=== PATIENT | female | born 1960 | race Caucasian/White ===

== ENCOUNTER 2016-07-13 13:50 | Emergency (ER) | payer OTHER ==
--- NOTE | 2016-07-13 14:36 | C.PDOC ---
History Of Present Illness 56 year old female presents to the ED with complaint of right shoulder pain. She states yesterday she tripped and fell on uneven pavement. Pain started last night, patient states she took Advil but felt no relief. Patient denies head injury, numbness or weakness. No further complaints at this time. Time Seen by Provider: 07/13/16 14:11 Chief Complaint (Nursing): Upper Extremity Problem/Injury History Per: Patient History/Exam Limitations: no limitations Onset/Duration Of Symptoms: Days Current Symptoms Are (Timing): Still Present Quality: "Pain" Severity: Mild Exacerbating Factor(s): Movement Past Medical History Reviewed: Historical Data, Nursing Documentation, Vital Signs Vital Signs: Last Vital Signs Temp 97.9 F 07/13/16 14:45 Pulse 82 07/13/16 14:45 Resp 18 07/13/16 14:45 BP 158/96 H 07/13/16 15:06 Pulse Ox 98 07/13/16 16:10 Family History: States: Unknown Family Hx - Social History Hx Tobacco Use: No Hx Alcohol Use: No Hx Substance Use: No - Immunization History Hx Tetanus Toxoid Vaccination: No Hx Influenza Vaccination: No Hx Pneumococcal Vaccination: No Review Of Systems Except As Marked, All Systems Reviewed And Found Negative. Constitutional: Negative for: Fever, Chills Gastrointestinal: Negative for: Vomiting Musculoskeletal: Positive for: Shoulder Pain (Right shoulder). Negative for: Neck Pain, Arm Pain Neurological: Negative for: Weakness, Numbness, Headache Physical Exam - Physical Exam Appears: Well, Non-toxic, No Acute Distress Skin: Normal Color, Warm Head: Atraumatic, Normacephalic, No Tenderness Eye(s): bilateral: Normal Inspection Neck: Normal ROM Chest: Symmetrical Extremity: Tenderness (Right shoulder tenderness anteriorly), Capillary Refill ( < 2 seconds), No Deformity, No Swelling, Other (pain with abduction) Pulses: Left Radial: Normal, Right Radial: Normal Neurological/Psych: Oriented x3, Normal Speech, Normal Sensation, Normal Reflexes Gait: Steady ED Course And Treatment O2 Sat by Pulse Oximetry: 98 (Room air) Pulse Ox Interpretation: Normal - Other Rad Right Shoulder xray X-Ray: Interpreted by Me, Viewed By Me Interpretation: Negative for fracture. Medical Decision Making Medical Decision Making: Plan: * R Shoulder XRay * Reassess Prior Visits: Notes and results from previous visits were reviewed. Progress Notes: xray negative for fracture Arm sling applied by RN. On reassessment, patient is resting comfortably, and is in no acute distress. BP was elevated, patient states whenever she is in hospital she has high blood pressure, because she gets nervous. Patient instructed to follow up with clinic/PMD within 1-2 days. Disposition Counseled Patient/Family Regarding: Diagnosis, Need For Followup, Rx Given - Disposition Disposition: HOME/ ROUTINE Disposition Time: 14:34 Condition: STABLE Additional Instructions: Hinojosa radiografa es normal, sin fractura. Por favor aplique hielo a la nilo 15-20 minutos dos o misty veces al da. [facility] Motrin u otro medicamento anti- inflamatorio, con alimentos para no molestar el estmago. Seguir con ortopedia si el dolor persiste hasmukh nas semana. 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 - Scribe Statement The provider has reviewed the documentation as recorded by the Juliocesar Pierce All medical record entries made by the Juliocesar were at my direction and personally dictated by me. I have reviewed the chart and agree that the record accurately reflects my personal performance of the history, physical exam, medical decision making, and the department course for this patient. I have also personally directed, reviewed, and agree with the discharge instructions and disposition.
[2016-07-13 14:47] VITALS: PULSE 82; RESP 18; TEMP 97.9
[2016-07-13 14:57] VITALS: O2SAT 98
[2016-07-13 15:06] VITALS: BP 158/96
--- NOTE | 2016-07-13 15:17 | RAD ---
PROCEDURE: Radiographs of the Right Shoulder HISTORY: pain s.p fall COMPARISON: None available. FINDINGS: BONES: Osseous demineralization limits evaluation for acute fracture lines. No acute displaced fracture. The distal clavicle and underlying ribs appear intact. Tiny calcification adjacent to the humeral head may reflect calcific tendinitis. JOINTS: No acute dislocation. Acromioclavicular arthropathy. Mild narrowing of the glenohumeral joint space. SOFT TISSUES: Soft tissues appear unremarkable. No evidence of radiopaque foreign body. IMPRESSION: Osseous demineralization. Degenerative changes. No acute displaced fracture or dislocation evident. If symptoms persist or if there is continued clinical concern, x-ray follow-up in 7-10 days should be considered. Evidence of calcific tendinitis with punctate calcification adjacent to the right humeral head.
== END 2016-07-13 15:06 | disposition home or self-care (01) ==
LOC: C.ER 13:50
DX: S43.401A Unspecified sprain of right shoulder joint, initial encounter (principal); W01.0XXA Fall on same level from slipping, tripping and stumbling without subsequent striking against object, initial encounter; Y92.480 Sidewalk as the place of occurrence of the external cause

== ENCOUNTER 2017-07-27 11:59 | Emergency (ER) | payer MEDICAID, OTHER ==
[2017-07-27 12:11] VITALS: BP 144/98; PULSE 98; TEMP 98.1; O2SAT 98
--- NOTE | 2017-07-27 13:07 | C.PDOC ---
History Of Present Illness 57 year old female complains of noticing redness to right lower leg 3 days ago, now area is swollen and hurts to touch. denies any injury, fall, itching, numbness, weakness. Time Seen by Provider: 07/27/17 12:28 Chief Complaint (Nursing): Lower Extremity Problem/Injury History Per: Patient History/Exam Limitations: no limitations Onset/Duration Of Symptoms: Days Current Symptoms Are (Timing): Still Present Location Of Injury: Right: Leg Recent travel outside of the [place]: No Past Medical History Reviewed: Historical Data, Nursing Documentation, Vital Signs Vital Signs: Last Vital Signs Temp 98.1 F 07/27/17 12:07 Pulse 98 H 07/27/17 12:07 Resp 18 07/27/17 13:16 BP 144/98 H 07/27/17 12:07 Pulse Ox 98 07/27/17 13:22 - Medical History PMH: HTN (NO MEDS) Family History: States: Unknown Family Hx - Social History Hx Tobacco Use: No Hx Alcohol Use: No Hx Substance Use: No - Immunization History Hx Tetanus Toxoid Vaccination: No Hx Influenza Vaccination: Yes Hx Pneumococcal Vaccination: No Review Of Systems Constitutional: Negative for: Fever, Chills Skin: Positive for: Other (Redness to right lower leg) Neurological: Negative for: Weakness, Numbness Physical Exam - Physical Exam Appears: Non-toxic, No Acute Distress Skin: Warm, Dry Head: Atraumatic, Normacephalic Eye(s): bilateral: Normal Inspection Extremity: Normal ROM (To right leg and ankle), No Calf Tenderness, Capillary Refill (<2 seconds), Other (Right distal lateral tibial area with 1x2cm area of erythema, induration, and swelling extending to the lateral ankle. Foot with bunion and hammer toe second digit.) Pulses: Left Dorsalis Pedis: Normal, Right Dorsalis Pedis: Normal Neurological/Psych: Oriented x3, Normal Speech, Normal Motor, Normal Sensation Gait: Steady ED Course And Treatment O2 Sat by Pulse Oximetry: 98 Medical Decision Making Medical Decision Making: Patient with erythema, swelling, induration to right posterior ankle. Will treat for cellulitis with Bactrim, since patient has PCN allergy. Recommend warm compress and motrin for inflammation and pain. Follow up for wound check with primary doctor, clinic or ER in 2-3 days to make sure it is improving and not spreading. Disposition Counseled Patient/Family Regarding: Diagnosis, Need For Followup, Rx Given - Disposition Referrals: Delmy Gould MD [Staff Provider] - [facility] [Outside] [facility] [Outside] [facility] [Outside] Disposition: HOME/ ROUTINE Disposition Time: 13:08 Condition: GOOD Additional Instructions: Rx sent to [facility] Take antibiotic twice daily for one week Recommend warm compress and motrin for inflammation and pain. Follow up for wound check with primary doctor, clinic or ER in 2-3 days to make sure it is improving and not spreading. If you notice and streaking redness, severe pain or fevers return to ER Prescriptions: Ibuprofen [Motrin] 600 mg PO Q8 #30 tab Sulfamethoxazole/Trimethoprim [Bactrim DS 800 mg-160 mg] 1 tab PO BID #14 tab Instructions: Cellulitis (Skin Infection), Adult (DC) Forms: [employer] (Setswana) Print Language: WOLOF - POA Present On Arrival: None - Clinical Impression Clinical Impression: Cellulitis of leg - PA / TRAFFIC ADMINISTRATOR / Resident Statement MD/DO has reviewed & agrees with the documentation as recorded. - Scribe Statement The provider has reviewed the documentation as recorded by the Scribkelly Johnston All medical record entries made by the Christinibkelly were at my direction and personally dictated by me. I have reviewed the chart and agree that the record accurately reflects my personal performance of the history, physical exam, medical decision making, and the department course for this patient. I have also personally directed, reviewed, and agree with the discharge instructions and disposition.
[2017-07-27 13:17] VITALS: RESP 18
== END 2017-07-27 13:17 | disposition home or self-care (01) ==
LOC: C.ER 11:59
DX: L03.115 Cellulitis of right lower limb (principal)

== ENCOUNTER 2018-07-22 11:59 | Emergency (ER) | payer SELFPAY ==
[2018-07-22 12:04] VITALS: BMI 26.6
[2018-07-22 12:08] VITALS: TEMP 98.2
--- NOTE | 2018-07-22 13:45 | C.PDOC ---
History Of Present Illness 58 y/o female presents to ED complaining of worsening right lower extremity pain for the past 2 weeks. Patient denies trauma or fall. Has history of varicose veins. Time Seen by Provider: 07/22/18 12:23 Chief Complaint (Nursing): Lower Extremity Problem/Injury History Per: Patient History/Exam Limitations: no limitations Onset/Duration Of Symptoms: Days Current Symptoms Are (Timing): Still Present Past Medical History Reviewed: Historical Data, Nursing Documentation, Vital Signs Vital Signs: Last Vital Signs Temp 98.2 F 07/22/18 12:04 Pulse 107 H 07/22/18 12:04 Resp 18 07/22/18 12:04 BP 177/121 H 07/22/18 12:04 Pulse Ox 95 07/22/18 12:04 - Medical History PMH: HTN Denies: Chronic Kidney Disease Family History: States: No Known Family Hx - Social History Hx Tobacco Use: No Hx Alcohol Use: No Hx Substance Use: No - Immunization History Hx Tetanus Toxoid Vaccination: No Hx Influenza Vaccination: Yes Hx Pneumococcal Vaccination: No Review Of Systems Except As Marked, All Systems Reviewed And Found Negative. Cardiovascular: Negative for: Chest Pain Respiratory: Negative for: Shortness of Breath Gastrointestinal: Negative for: Vomiting, Abdominal Pain Musculoskeletal: Positive for: Leg Pain (Right). Negative for: Neck Pain Neurological: Negative for: Weakness, Numbness Physical Exam - Physical Exam Appears: Non-toxic, No Acute Distress Skin: Warm, Dry Head: Atraumatic, Normacephalic Eye(s): bilateral: Normal Inspection Oral Mucosa: Moist Neck: Supple Cardiovascular: Rhythm Regular, No Murmur Respiratory: Normal Breath Sounds, No Rales, No Rhonchi, No Wheezing Gastrointestinal/Abdominal: Soft, No Tenderness Extremity: Tenderness, Other (diffuse 1+ edema on right lower extremity, no erythema) Extremity: Bilateral: Normal ROM Neurological/Psych: Oriented x3, Normal Speech, Normal Motor, Normal Sensation ED Course And Treatment O2 Sat by Pulse Oximetry: 95 (RA) Pulse Ox Interpretation: Normal Medical Decision Making Medical Decision Making: Plan: --Flexeril 10 mg PO --Toradol 60 mg IM --Venous Duplex Scan Right Lower Ext Update: Venous doppler negative Disposition - Disposition Referrals: Leo Green MD [Non-Staff] - Disposition: HOME/ ROUTINE Disposition Time: 17:11 Condition: STABLE Prescriptions: Ibuprofen [Motrin] 600 mg PO TID #15 tab Methocarbamol [Robaxin] 500 mg PO BID 7 Days #18 tab Instructions: Radiculopathy (DC) Forms: [facility] (Kiswahili), Work Excuse - Clinical Impression Clinical Impression: Lumbar radiculopathy - Scribe Statement The provider has reviewed the documentation as recorded by the Christinibkelly Paulino Provider Attestation: All medical record entries made by the Christinibkelly were at my direction and personally dictated by me. I have reviewed the chart and agree that the record accurately reflects my personal performance of the history, physical exam, medical decision making, and the department course for this patient. I have also personally directed, reviewed, and agree with the discharge instructions and disposition.
[2018-07-22 17:16] VITALS: BP 164/94; PULSE 90; RESP 20
[2018-07-23 14:22] VITALS: O2SAT 95
--- NOTE | 2018-07-24 12:01 | VASCLAB ---
Date of service: 07/22/2018 PROCEDURE: Right Lower Extremity Venous Duplex Exam. HISTORY: dvt PRIORS: None. TECHNIQUE: Right common femoral, femoral, popliteal and posterior tibial, peroneal and great saphenous veins were evaluated. Flow was assessed with color Doppler, compressibility, assessment of phasic flow and augmentation response. Report prepared by YANI Tadeo FINDINGS: RIGHT: 1. Common Femoral Vein: 1.1. Compressibility - Fully compressible: Thrombus - None: Flow - Phasic: Augmentation -Normal: Reflux - None. 2. Femoral Vein: 2.1. Compressibility - Fully compressible: Thrombus - None: Flow - Phasic: Augmentation -Normal: Reflux - None. 3. Popliteal Vein: 3.1. Compressibility - Fully compressible: Thrombus - None: Flow - Phasic: Augmentation -Normal: Reflux - None. 4. Posterior Tibial Vein: 4.1. Compressibility - Fully compressible: Thrombus - None: Flow - Phasic: Augmentation -Normal: Reflux - None. 5. Peroneal Vein: 5.1. Compressibility - Fully compressible: Thrombus - None: Flow - Phasic: Augmentation -Normal: Reflux - None. 6. Great Saphenous Vein: 6.1. Compressibility - Fully compressible: Thrombus -None: Flow - Phasic: Augmentation - Normal: Reflux - None. OTHER FINDINGS: IMPRESSION: No evidence of deep or superficial vein thrombosis of the right lower extremity with excellent venous flow. Normal valve function noted of the right side. Normal venous flow noted in the left common femoral vein.
== END 2018-07-22 17:29 | disposition home or self-care (01) ==
LOC: C.ER 11:59
DX: M54.16 Radiculopathy, lumbar region (principal); I10 Essential (primary) hypertension
CPT/HCPCS: 93971; 96372; 99284; J1885